=== PATIENT | male | born 1980 | race Caucasian/White ===

== ENCOUNTER 2024-04-24 11:40 | Day surgery (SDC) | payer OTHER ==
[2024-04-24] MEDS ORDERED: Sodium Chloride 0.9(Preservative Free) 10 ML IJ ONE (11:41)
[2024-04-24] MEDS ORDERED: Decadron 4 MG INJ IV ONE (11:41)
[2024-04-24] MEDS ORDERED: DIPRIVAN 200 MG/20 ML IV ONE ×2 (13:30→13:42)
--- NOTE | 2024-04-24 14:43 | XRAY ---
Indication: Left L4-S1 transforaminal MAGGIE. Intraoperative fluoroscopy provided for 27 seconds. 5 digital spot image submitted for interpretation demonstrates posterior needle tips projecting over expected left L4 and L5 nerve roots. Small amount of contrast injected for needle tip placement. Correlate with intraoperative findings/report.
--- NOTE | 2024-04-24 14:46 | XRAY ---
27 seconds of fluoroscopy was used in surgery for a left L4-S1 transforaminal MAGGIE.
== END 2024-04-24 14:00 | disposition home or self-care (01) ==
LOC: SDC-PAIN 11:40
PROVIDERS: ATTEND Psychiatry & Neurology Pain Medicine
DX: M54.16 Radiculopathy, lumbar region (principal); R73.03 Prediabetes
CPT/HCPCS: 64483; 64484; 72100; 77003; 82947; J1100; J2704; Q9966

== ENCOUNTER 2024-06-25 13:44 | Day surgery (SDC) | payer OTHER ==
[2024-06-25] MEDS ORDERED: LIDOCAINE HCL 1% AMPUL 5 ML IJ ONE (13:45)
[2024-06-25] MEDS ORDERED: Sodium Chloride 0.9(Preservative Free) 10 ML IJ ONE (13:45)
[2024-06-25] MEDS ORDERED: Depo-Medrol 40 MG/ML IM ONE (13:45)
[2024-06-25] MEDS ORDERED: propofoL IV ONE ×2 (15:25→15:29)
--- NOTE | 2024-06-25 16:56 | XRAY ---
Indication: Caudal MAGGIE. Intraoperative fluoroscopy provided for 11 seconds. 2 digital spot image submitted for interpretation demonstrates caudal needle tip projecting mid sacrum. Small amount of contrast injected for needle tip placement. Correlate with intraoperative findings/report.
--- NOTE | 2024-06-25 17:21 | XRAY ---
11 seconds of fluoroscopy were used in surgery for a caudal epidural steroid injection.
== END 2024-06-25 15:54 | disposition home or self-care (01) ==
LOC: SDC-PAIN 13:44
PROVIDERS: ATTEND Psychiatry & Neurology Pain Medicine
DX: M54.16 Radiculopathy, lumbar region (principal); R73.03 Prediabetes
CPT/HCPCS: 62323; 72220; 77003; 82947; J2704; Q9966